=== PATIENT | male | born 1950 ===

== ENCOUNTER → 2024-01-13 10:32 | Outpatient (REF) | payer MEDICARE, SELFPAY ==
[2024-01-13 11:26] LABS: % Basophils 0.6 % (0-2); % Eosinophils 2.4 % (0-6); % Immature Granulocytes 0.2 % (0-0.5); % Lymphocytes 16.7 % (20.5-51.1); % Monocytes 13.3 % (1.7-9.3); % Neutrophils 66.8 % (42.2-75.2); Absolute Eosinophils 0.1 10^3/uL (0-0.7); Absolute Lymphocytes 0.9 10^3/uL (1.2-3.4); Absolute Monocytes 0.7 10^3/uL (0.1-0.6); Absolute Neutrophils 3.4 10^3/uL (1.4-6.5); Hematocrit 45.3 % (39.0-52.0); Hemoglobin 15.5 g/dL (13.0-18.0); Mean Corp Hgb Conc. 34.2 g/dL (33.0-37.0); Mean Corpuscular Hgb 31.8 pg (27.0-31.0); Mean Platelet Volume 10.7 fL (7.4-10.4); Nucleated Red Blood Cells % 0 % (-); Platelet Count 133 10^3/uL (130-400); Red Blood Cell Count 4.87 10^6/uL (4.70-6.10); Red Cell Dist. Width 12.6 % (11.5-14.5); White Blood Cell Count 5.1 10^3/uL (4.8-10.8)
[2024-01-13 12:13] LABS: ALT (SGPT) 27 U/L (0-50); AST (SGOT) 42 U/L (17-59); Albumin 4.4 g/dl (3.5-5.0); Alkaline Phosphatase 55 U/L (38-126); Blood Urea Nitrogen 24 mg/dl (9-20); Calcium 9.1 mg/dl (8.4-10.2); Carbon Dioxide 26 mmol/L (22-30); Chloride 104 mmol/L (98-107); Glucose 102 mg/dl (70-99); HDL Cholesterol 58 mg/dl; LDL Cholesterol, Calculated 143 mg/dl; Potassium 4.5 mmol/L (3.5-5.1); Sodium 143 mmol/L (135-145); Total Bilirubin 0.6 mg/dl (0.2-1.3); Total Cholesterol 218 mg/dl (50-199); Triglyceride 85 mg/dl (10-149); Very Low Density Lipoprotein 17 mg/dl (0-30); eGFR > 60.00
[2024-01-13 13:36] LABS: TSH 0.75 uIU/ml (0.47-4.68)
[2024-01-15 00:30] LABS: PSA Total 1.9 ng/mL (0.0-4.0)
== END ==
LOC: REG 10:32
PROVIDERS: FAMILY PHYSICIAN Internal Medicine
DX: E78.00 Pure hypercholesterolemia, unspecified (principal); Z00.00 Encounter for general adult medical examination without abnormal findings; I10 Essential (primary) hypertension; N40.0 Benign prostatic hyperplasia without lower urinary tract symptoms
CPT/HCPCS: 36415; 80053; 80061; 84153; 84154; 84443; 85025

== ENCOUNTER → 2024-01-20 06:17 | Day surgery (SDC) | payer MEDICARE, SELFPAY | LOC: GI 06:17 | PROVIDERS: ATTENDING PHYSICIAN Internal Medicine Gastroenterology | DX: Z12.11 Encounter for screening for malignant neoplasm of colon (principal); D12.0 Benign neoplasm of cecum; D12.3 Benign neoplasm of transverse colon; K64.8 Other hemorrhoids; Z86.0100 Personal history of colon polyps, unspecified | CPT/HCPCS: 45385; 45380; 88305 ==

== ENCOUNTER → 2025-01-13 10:31 | Outpatient (REF) | payer MEDICARE, SELFPAY ==
[2025-01-13 11:30] LABS: Hematocrit 43.8 % (39.0-52.0); Hemoglobin 15.1 g/dL (13.0-18.0); Mean Corp Hgb Conc. 34.5 g/dL (33.0-37.0); Mean Corpuscular Volume 93.0 fL (80.0-94.0); Nucleated Red Blood Cells % 0 % (-); Platelet Count 148 10^3/uL (130-400); Red Cell Dist. Width 12.4 % (11.5-14.5)
[2025-01-13 13:28] LABS: ALT (SGPT) 30 U/L (0-50); AST (SGOT) 30 U/L (17-59); Albumin 4.2 g/dl (3.5-5.0); Alkaline Phosphatase 59 U/L (38-126); Blood Urea Nitrogen 18 mg/dl (9-20); Calcium 9.1 mg/dl (8.4-10.2); Carbon Dioxide 27 mmol/L (22-30); Chloride 106 mmol/L (98-107); Glucose 105 mg/dl (70-99); HDL Cholesterol 45 mg/dl; LDL Cholesterol, Calculated 158 mg/dl; Potassium 5.0 mmol/L (3.5-5.1); Sodium 139 mmol/L (135-145); Total Protein 6.9 g/dl (6.3-8.2); Very Low Density Lipoprotein 27 mg/dl (0-30); eGFR > 60.00
== END ==
LOC: REG 10:31
PROVIDERS: FAMILY PHYSICIAN Internal Medicine
DX: N40.0 Benign prostatic hyperplasia without lower urinary tract symptoms (principal); I10 Essential (primary) hypertension; E78.00 Pure hypercholesterolemia, unspecified; R73.01 Impaired fasting glucose
CPT/HCPCS: 36415; 80053; 80061; 84153; 84154; 85025